=== PATIENT | female | born 1945 | race Caucasian/White ===

== ENCOUNTER 2018-06-10 02:32 | Emergency (ER) | payer MEDICARE ==
[~2018-06-10] VITALS: Ht 162.6 cm; Wt 79.5 kg
[2018-06-10 02:50] VITALS: Ht 162.6 cm; Wt 79.5 kg
[2018-06-10] MEDS ORDERED: CELEXA20 MG (02:51)
[2018-06-10] MEDS ORDERED: EC-NAPROSYN500 MG PO ×2 (02:51→12:56)
[2018-06-10] MEDS ORDERED: bp meds (02:52)
[2018-06-10] MEDS ORDERED: BAYER CHEWABLE81 MG PO (02:52)
[2018-06-10 04:44] VITALS: BP 145/68
[2018-06-10] MEDS ORDERED: ZESTRIL40 MG PO (12:54)
[2018-06-10] MEDS ORDERED: TOPROL XL50 MG PO (12:55)
[2018-06-10] MEDS ORDERED: PEPCID40 MG PO (12:55)
[2018-06-10] MEDS ORDERED: CELEXA20 MG PO (12:56)
[2018-06-10] MEDS ORDERED: ATIVAN0.5 MG PO (12:58)
[2018-06-10] MEDS ORDERED: ZANAFLEX4 MG PO (12:59)
[2018-06-14 14:49] VITALS: Ht 162.6 cm; Wt 79.5 kg
== END 2018-06-10 04:25 | disposition home or self-care (01) ==
LOC: D.ER 02:32 → EDBD 02:32 → D.ER 04:25
DX: M79.602 Pain in left arm (principal); M79.604 Pain in right leg; W19.XXXA Unspecified fall, initial encounter; Y93.9 Activity, unspecified; Y92.019 Unspecified place in single-family (private) house as the place of occurrence of the external cause

== ENCOUNTER 2018-06-10 06:55 | Inpatient (IN) | payer MEDICARE ==
[~2018-06-10] VITALS: Ht 162.6 cm; Wt 80.9 kg
--- NOTE | ~2018-06-10 | MORECARE ---
CASE MANAGEMENT DISCHARGE SUMMARY PATIENT: EFREN FABIAN UNIT: [id number] ADM DATE: 06/11/18 AGE: 73 : 45 SEX: F ROOM/BED: D.2204 AUTHOR: MISTY ROWLAND PHYSICIAN: REFERRING PHYSICIAN: ISAURA SANCHEZ MD DATE OF SERVICE: 06/12/18 Discharge Plan Patient Name: EFREN FABIAN [facility] [facility] 1945 Planned Disposition: Inpatient Rehab Anticipated Discharge Date: Discharge Date: Expected LOS: Initial Reviewer: [email or web address] Initial Review Date: 06/10/2018 Generated: 06/12/18 1:39 pm DCPIA - Discharge Planning Initial Assessment Updated by [email or web address]: Rachelle Geronimo on 06/12/18 12:38 pm * Is the patient Alert and Oriented? Yes * How many steps to enter\exit or inside your home? * PCP katrina * Pharmacy [facility] in [place] * Preadmission Environment Home Alone * ADLs Independent * Equipment Cane Elevated [place] Seat Grab Bars * List name and contact numbers for known caregivers / representatives who currently or will assist patient after discharge: Neema Vizcarra (daughter) [phone] * Verbal permission to speak to the caregivers and representatives has been obtained from the patient. Yes * Community resources currently utilized None * Additional services required to return to the preadmission environment? Yes * Can the patient safely return to the preadmission environment? No * Has this patient been hospitalized within the prior 30 days at any hospital? No Patient Name: EFREN FABIAN Page [id number] at 1239 All edits/amendments must be made on the electronic document DICTATION DATE: 06/12/18 1239 MANAGER OPERATING: AARON 06/12/18 1239 RPT#: [id number] DC DATE: STATUS: ADM IN [facility] [address] [place] [address] END OF REPORT
--- NOTE | ~2018-06-10 | MORECARE ---
CASE MANAGEMENT DISCHARGE SUMMARY PATIENT: EFREN FABIAN UNIT: [id number] ADM DATE: 06/11/18 AGE: 73 : 45 SEX: F ROOM/BED: D.2204 AUTHOR: MISTY ROWLAND PHYSICIAN: REFERRING PHYSICIAN: ISAURA SANCHEZ MD DATE OF SERVICE: 06/15/18 Discharge Plan Patient Name: EFREN FABIAN Facility: [facility]:[place] : 1945 Planned Disposition: Inpatient Rehab Anticipated Discharge Date: Discharge Date: 06/13/2018 Expected LOS: 0 Initial Reviewer: [email or web address] Initial Review Date: 06/10/2018 Generated: 06/15/18 1:32 pm Comments DCP- Discharge Planning Updated by [email or web address]: Rachelle Geronimo on 06/12/18 11:[address] Patient Name: EFREN FABIAN Admission Status: ER Accout number: [id number] Admission Date: 06-11-2018 : 1945 Admission Diagnosis: Attending: ISAURA SANCHEZ Current LOS: 1 Anticipated DC Date: Planned Disposition: Inpatient Rehab Primary Insurance: MEDICARE A & B Discharge Planning Comments: CM met with patient to assess discharge planning needs. Patient lives home alone where she is independent with her care at home. She has life alert, cane, and elevated toilet seat, grab bars in her shower. She would like a walker when she is discharge. She plans to go to [facility] inpatient rehab then she may go to her [facility] in [place] if she would not return home safely . Inpatient rehab will take her tomorrow 06/13. CM will continue to follow and assist with dc planning Roving Technician: Rachelle Geronimo DCPIA - Discharge Planning Initial Assessment Updated by [email or web address]: Rachelle Geronimo on 06/12/18 12:38 pm * Is the patient Alert and Oriented? Yes * How many steps to enter\exit or inside your home? * PCP katrina * Pharmacy [facility] in [place] * Preadmission Environment Home Alone * ADLs Independent * Equipment Cane Elevated [place] Seat Grab Bars * List name and contact numbers for known caregivers / representatives who currently or will assist patient after discharge: Neema Vizcarra (daughter) [phone] * Verbal permission to speak to the caregivers and representatives has been obtained from the patient. Yes * Community resources currently utilized None * Additional services required to return to the preadmission environment? Yes * Can the patient safely return to the preadmission environment? No * Has this patient been hospitalized within the prior 30 days at any hospital? No Last DP export: 06/12/18 11:50 Patient Name: EFREN FABIAN Page [id number] at 1232 All edits/amendments must be made on the electronic document DICTATION DATE: 06/15/18 1232 SOFTWARE ENGINEERING MANAGER: AARON 06/15/18 1232 RPT#: [id number] [place] DATE:06/13/18 STATUS: DIS IN [facility] [address] [place] [address] END OF REPORT
--- NOTE | ~2018-06-10 | MORECARE ---
CASE MANAGEMENT DISCHARGE SUMMARY PATIENT: EFREN FABIAN UNIT: [id number] ADM DATE: 06/11/18 AGE: 73 : 45 SEX: F ROOM/BED: D.2204 AUTHOR: MISTY ROWLAND PHYSICIAN: REFERRING PHYSICIAN: ISAURA SANCHEZ MD DATE OF SERVICE: 06/12/18 Discharge Plan Patient Name: EFREN FABIAN Facility: [facility]:[place] : 1945 Planned Disposition: Inpatient Rehab Anticipated Discharge Date: Discharge Date: Expected LOS: Initial Reviewer: [email or web address] Initial Review Date: 06/10/2018 Generated: 06/12/18 1:50 pm Comments DCP- Discharge Planning Updated by [email or web address]: Rachelle Geronimo on 06/12/18 11:[address] Patient Name: EFREN FABIAN Admission Status: ER Accout number: [id number] Admission Date: 06-11-2018 : 1945 Admission Diagnosis: Attending: ISAURA SANCHEZ Current LOS: 1 Anticipated DC Date: Planned Disposition: Inpatient Rehab Primary Insurance: MEDICARE A & B Discharge Planning Comments: CM met with patient to assess discharge planning needs. Patient lives home alone where she is independent with her care at home. She has life alert, cane, and elevated toilet seat, grab bars in her shower. She would like a walker when she is discharge. She plans to go to [facility] inpatient rehab then she may go to her [facility] in [place] if she would not return home safely . Inpatient rehab will take her tomorrow 06/13. CM will continue to follow and assist with dc planning Sales And Marketing Assistant: Rachelle Geronimo DCPIA - Discharge Planning Initial Assessment Updated by [email or web address]: Rachelle Geronimo on 06/12/18 12:38 pm * Is the patient Alert and Oriented? Yes * How many steps to enter\exit or inside your home? * PCP katrina * Pharmacy [facility] in [place] * Preadmission Environment Home Alone * ADLs Independent * Equipment Cane Elevated [place] Seat Grab Bars * List name and contact numbers for known caregivers / representatives who currently or will assist patient after discharge: Neema Vizcarra (daughter) [phone] * Verbal permission to speak to the caregivers and representatives has been obtained from the patient. Yes * Community resources currently utilized None * Additional services required to return to the preadmission environment? Yes * Can the patient safely return to the preadmission environment? No * Has this patient been hospitalized within the prior 30 days at any hospital? No Last DP export: 06/12/18 11:39 Patient Name: EFREN FABIAN Page [id number] at 1250 All edits/amendments must be made on the electronic document DICTATION DATE: 06/12/18 1250 SAFE DEPOSIT BOX RENTAL CLERK: AARON 06/12/18 1250 RPT#: [id number] MA DATE: STATUS: ADM IN [facility] [address] [place] [address] END OF REPORT
[~2018-06-10 06:55] MED LIST: BAYER CHEWABLE81 MG PO; CELEXA20 MG; EC-NAPROSYN500 MG PO; bp meds
[2018-06-10 08:15] LABS: BASOPHILS 0.1 % (0-2); EOSINOPHILS 0.3 % (0-7); HEMATOCRIT 39.2 % (36.0-48.0); HEMOGLOBIN 13.3 g/dL (12-16); IMMATURE GRANULOCYTES 0.3 % (0-5); LYMPHOCYTES 20.4 % (15-50); MCH 33.3 pg (26.0-34.0); MCHC 33.9 g/dL (31.0-37.0); MCV 98.2 fL (80.0-100.0); MEAN PLATELET VOLUME 12.4 fL (7.4-10.4); MONOCYTES 10.9 % (2-11); PLATELET COUNT 236 10x3/uL (130-400); RBC 3.99 10x6/uL (4.00-5.40); WBC 7.6 10x3/uL (4.8-10.8)
[2018-06-10 08:30] LABS: ALBUMIN 3.7 g/dL (3.4-5.0); ALKALINE PHOSPHATASE 99 U/L (46-116); ALT (SGPT) 22 U/L (10-68); CALC OSMOLALITY 281 mosm/kg (275-300); CALCIUM 8.6 mg/dL (8.5-10.1); CHLORIDE - SERUM 102 mmol/L (98-107); GLUCOSE 109 mg/dL (74-106); POTASSIUM - SERUM 4.2 mmol/L (3.5-5.1); SODIUM 140 mmol/L (136-145); UREA NITROGEN 17 mg/dL (7-18); eGFR NON AFRICAN AMERICAN 58 mL/min (90-120)
[2018-06-10 08:41] LABS: CKMB 0.4 U/L (0.0-3.6); CREATINE KINASE 124 UL (21-215)
[2018-06-10 08:45] LABS: TROPONIN-I < 0.017 ng/mL (0.000-0.060)
[2018-06-10 08:47] LABS: APPEARANCE CLOUDY (CLEAR); BILIRUBIN NEGATIVE (NEGATIVE); COLOR YELLOW (YELLOW); GLUCOSE NEGATIVE (NEGATIVE); KETONE NEGATIVE (NEGATIVE); NITRITE NEGATIVE (NEGATIVE); PROTEIN TRACE mg/dL (NEGATIVE); UROBILINOGEN NORMAL (NORMAL)
[2018-06-10 08:48] LABS: WHITE CELLS - URINE 0-5 /hpf (0-5)
[2018-06-10 08:49] LABS: AMORPHOUS SEDIMENT <1+ /lpf (NONE SEEN); BACTERIA MODERATE /hpf (NONE SEEN); EPITHELIAL CELLS OCC /hpf (0-5); MUCUS <1+ /lpf (NONE SEEN)
[2018-06-10] MEDS ORDERED: ZESTRIL40 MG PO (12:54)
[2018-06-10] MEDS ORDERED: TOPROL XL50 MG PO (12:55)
[2018-06-10] MEDS ORDERED: PEPCID40 MG PO (12:55)
[2018-06-10] MEDS ORDERED: EC-NAPROSYN500 MG PO (12:56)
[2018-06-10] MEDS ORDERED: CELEXA20 MG PO (12:56)
[2018-06-10] MEDS ORDERED: ATIVAN0.5 MG PO (12:58)
[2018-06-10] MEDS ORDERED: ZANAFLEX4 MG PO (12:59)
[2018-06-10 16:13] VITALS: BP 114/54; Ht 162.6 cm; Wt 80.9 kg
[2018-06-10 20:00] VITALS: BP 102/52
[2018-06-11] VITALS: BP 104/49
[2018-06-11 04:02] VITALS: BP 103/56
[2018-06-11 06:06] LABS: ANION GAP 10.7 mmol/L (8-16); BILIRUBIN - TOTAL 0.9 mg/dL (0.2-1.3); CALCIUM 7.8 mg/dL (8.5-10.1); CARBON DIOXIDE 25.1 mmol/L (21.0-32.0); CREATININE - SERUM 0.8 mg/dL (0.6-1.3); POTASSIUM - SERUM 3.8 mmol/L (3.5-5.1); PROTEIN - SERUM 5.6 g/dL (6.4-8.2)
[2018-06-11 06:07] LABS: ALBUMIN 2.6 g/dL (3.4-5.0)
[2018-06-11 09:03] VITALS: BP 112/92
[2018-06-11 09:53] LABS: BASOPHILS 0.2 % (0-2); EOSINOPHILS 1.8 % (0-7); HEMATOCRIT 35.4 % (36.0-48.0); HEMOGLOBIN 11.4 g/dL (12-16); IMMATURE GRANULOCYTES 0.2 % (0-5); LYMPHOCYTES 21.7 % (15-50); MCH 32.8 pg (26.0-34.0); MCHC 32.2 g/dL (31.0-37.0); MEAN PLATELET VOLUME 11.5 fL (7.4-10.4); MONOCYTES 11.5 % (2-11); NEUTROPHILS 64.6 % (40-80); RBC 3.48 10x6/uL (4.00-5.40); RDW 12.8 % (11.5-14.5)
[2018-06-11 09:59] LABS: PLATELET COUNT 106 10x3/uL (130-400); WBC 5.5 10x3/uL (4.8-10.8)
[2018-06-11 10:01] LABS: MCV 101.7 fL (80.0-100.0)
[2018-06-11 12:30] VITALS: BP 142/108
[2018-06-11 17:15] VITALS: BP 142/66
[2018-06-11 20:00] VITALS: BP 149/63
[2018-06-12 04:00] VITALS: BP 179/67
[2018-06-12 05:07] LABS: BASOPHILS 0.4 % (0-2); EOSINOPHILS 2.4 % (0-7); HEMATOCRIT 37.3 % (36.0-48.0); HEMOGLOBIN 12.2 g/dL (12-16); IMMATURE GRANULOCYTES 0.4 % (0-5); LYMPHOCYTES 24.1 % (15-50); MCH 32.6 pg (26.0-34.0); MCHC 32.7 g/dL (31.0-37.0); MEAN PLATELET VOLUME 11.1 fL (7.4-10.4); MONOCYTES 13.3 % (2-11); NEUTROPHILS 59.4 % (40-80); PLATELET COUNT 112 10x3/uL (130-400); RBC 3.74 10x6/uL (4.00-5.40); RDW 12.3 % (11.5-14.5); WBC 5.3 10x3/uL (4.8-10.8)
[2018-06-12 05:17] LABS: MCV 99.7 fL (80.0-100.0)
[2018-06-12 05:36] LABS: ANION GAP 13.4 mmol/L (8-16); CALCIUM 8.3 mg/dL (8.5-10.1); CARBON DIOXIDE 28.3 mmol/L (21.0-32.0); CREATININE - SERUM 0.8 mg/dL (0.6-1.3); POTASSIUM - SERUM 3.7 mmol/L (3.5-5.1)
[2018-06-12 08:25] VITALS: BP 171/74
[2018-06-12 11:30] VITALS: BP 140/74
[2018-06-12 16:00] VITALS: BP 145/65
[2018-06-12 19:40] VITALS: BP 172/77
[2018-06-13] VITALS: BP 150/63
[2018-06-13 06:11] LABS: BASOPHILS 0.5 % (0-2); EOSINOPHILS 1.9 % (0-7); HEMATOCRIT 35.5 % (36.0-48.0); HEMOGLOBIN 11.8 g/dL (12-16); IMMATURE GRANULOCYTES 0.5 % (0-5); LYMPHOCYTES 27.9 % (15-50); MCHC 33.2 g/dL (31.0-37.0); MCV 99.2 fL (80.0-100.0); MEAN PLATELET VOLUME 11.3 fL (7.4-10.4); MONOCYTES 13.4 % (2-11); NEUTROPHILS 55.8 % (40-80); PLATELET COUNT 125 10x3/uL (130-400); RBC 3.58 10x6/uL (4.00-5.40); RDW 12.5 % (11.5-14.5); WBC 5.7 10x3/uL (4.8-10.8)
[2018-06-13 06:35] VITALS: BP 147/67
[2018-06-13 06:37] LABS: ANION GAP 13.7 mmol/L (8-16); CALCIUM 8.7 mg/dL (8.5-10.1); CREATININE - SERUM 0.8 mg/dL (0.6-1.3); POTASSIUM - SERUM 3.7 mmol/L (3.5-5.1)
[2018-06-13 08:42] VITALS: BP 147/76
[2018-06-13] MEDS ORDERED: COLACE100 MG PO (10:07)
[2018-06-13] MEDS ORDERED: IBUPROFEN400 MG PO (10:07)
[2018-06-13] MEDS ORDERED: FLORAJEN3 CAPS460 MG PO (10:07)
[2018-06-13] MEDS ORDERED: HYDROCODON-ACE1 EAC7 PO (10:07)
[2018-06-13] MEDS ORDERED: PROTONIX VL + NS SYR IV (10:08)
[2018-06-13] MEDS ORDERED: ONDANSETRON4 MG/2 M3 IV (10:08)
[2018-06-13] MEDS ORDERED: MIRALAX17 GM PO (10:08)
[2018-06-13] MEDS ORDERED: MONODOX100 MG IVPB (10:11)
[2018-06-13] MEDS ORDERED: EC-NAPROSYN500 MG PO (10:34)
[2018-06-13 11:55] VITALS: BP 147/70
== END 2018-06-13 12:00 | DRG 690 ==
LOC: EDBD 06:55 → D.ER 06:55 → OBSVTIME 09:24 → D.EDHOLD 09:24 → D.MS 09:24
PROVIDERS: Family Medicine; Internal Medicine Nephrology
DX: N39.0 Urinary tract infection, site not specified (principal); B95.7 Other staphylococcus as the cause of diseases classified elsewhere; M25.512 Pain in left shoulder; W19.XXXA Unspecified fall, initial encounter; M54.10 Radiculopathy, site unspecified; I10 Essential (primary) hypertension; M79.604 Pain in right leg

== ENCOUNTER 2018-06-13 12:10 | Inpatient (IN) | payer MEDICARE ==
[~2018-06-13] VITALS: Ht 162.6 cm; Wt 79.4 kg
--- NOTE | ~2018-06-13 | RHP ---
PATIENT: EFREN FABIAN MEDICAL RECORD: [id number] ACCOUNT: [id number] LOCATION:[facility] : [birth year] ADMISSION DATE: 06/13/18 REHABILITATION HISTORY AND PHYSICAL EXAMINATION POST ADMISSION PHYSICIAN EXAMINATION DATE OF ADMISSION: 06/13/2018 ADMITTING DIAGNOSIS: Disuse myopathy. HISTORY OF PRESENT ILLNESS: The patient is admitted to inpatient rehab with disuse myopathy. She is a 73-year-old female patient, who presented to Emergency Room after several falls. She had an acute hospital admit on 06/10/2018. She has got a history of hypertension, cholecystectomy, knee replacement and hysterectomy. She was recently attempting to get out of her car and she fell on the door with both legs giving out on her and unable to bear weight. She was also ambulating in her home and fell forward in her bathroom after ambulating short distance, stating her legs just kept giving out. She complained of left shoulder pain, back pain and right thigh pain upon admission. She has an orthopedic surgery consult during her stay for workup. She had noted degenerative changes in the lumbar spine without any signs of spinal stenosis. She did have a mildly comminuted nondisplaced fracture of her humeral head. She had noted tendinitis of her supraspinatus and infraspinatus tendons, but no tear. 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 She was also found to have UTI with gram-positive cocci. She has been receiving IV antibiotic therapy. She has proximal muscle weakness with difficulty rising from bed to chair. She is on supplemental O2 at this time. She is also on IV antibiotics for UTI. She has got impaired mobility, weakness, frequent falls and self-care deficit. These are all barriers to her discharge. She and her daughter live in the [place] area, plan for her to regain her strength and her ability to live at home alone after inpatient rehab stay and possibly get home health or outpatient therapy to set up so that she can regain her strength and hopefully get back to her prior level of functioning. She may discharge home with her daughter to [place] if not able to stay at home alone after acute inpatient rehab stay. COMORBIDITIES: In this patient include UTI, diabetes, musculoskeletal pain, frequent falls, left shoulder pain. She has got a subacromial and subdeltoid bursitis noted. PAST MEDICAL HISTORY: Significant for hypertension, Ixdlq-Bcznvnqks-Qpsjg, gallbladder problems in the past, degenerative changes in her knees, back and spinal pain, urinary incontinence, arthritis, osteoporosis and anxiety. PAST SURGICAL HISTORY: Includes gallbladder removal, hysterectomy. She has had a right total knee and she has also had some metal plates placed in her left upper extremity secondary to a fall. ALLERGIES: PENICILLIN AND CODEINE. CURRENT MEDICATIONS: Include doxycycline, she was on 100 mg IV b.i.d. for a total of 7 days' worth, I am going to go and change her over to p.o.; Protonix 40 mg daily; lactobacillus 1 tab daily; metoprolol 50 mg daily; lisinopril 40 mg daily; citalopram 20 mg daily; aspirin chewable 81 mg daily; Zanaflex 4 mg every 8 hours p.r.n. She is on Zofran p.r.n. nausea and vomiting, Ativan 0.5 mg HISTORY AND PHYSICAL [id number] EFREN FABIAN.i.dGabriela p.r.n. anxiety; Motrin 400 mg every 4 hours p.r.n.; [place] 5/325 one tab every 4 hours p.r.n.; Colace 100 mg b.i.d., and MiraLax 17 grams in 8 ounces of water daily. HABITS: No alcohol or tobacco use. FAMILY HISTORY: Noncontributory. SOCIAL HISTORY: As above. Hopefully, the patient will be able to return home. If not, she will return back [place] with her daughter. REVIEW OF SYSTEMS: GENERAL: Does complain of some weakness or fatigue. HEENT: Denies cold, cough, or congestion. CARDIOVASCULAR: Denies chest pain. PHYSICAL EXAMINATION: VITAL SIGNS: Stable, afebrile. GENERAL: A well-developed female in no acute distress, alert upon exam. HEENT: Normocephalic and atraumatic. Mucosa moist. NECK: Supple. No lymphadenopathy. LUNGS: Clear at this time with no wheeze, rhonchi or rales. HEART: Regular rate and rhythm. No murmurs, rubs or gallops. ABDOMEN: Benign. No rebound, no guarding. EXTREMITIES: She does have some noted bruising and changes to her extremities. NEUROLOGIC: She does have noted proximal muscle weakness. LABORATORY DATA: White count is 5.7, H&H 12 and 35, and platelet count is 125. Her sodium is 144, potassium 3.7, BUN and creatinine of 12 and 0.8 and blood sugar was noted to be 101. Her admit UA did show still some 1+ leukocyte esterase and moderate bacteria. ASSESSMENT: This is a 73-year-old female patient admitted to rehab with a working diagnosis of disuse myopathy. The patient has potential to make improvement. We instituted the following multidisciplinary therapies include, but not limited to physical, occupational, respiratory, speech, nutritional services, prosthetics and orthotics. Given her complex medical condition and risk for more complications, rehabilitation services cannot be provided at a low level of care such as skilled nurse facility. PLAN: 1. Admit to [facility] rehab for intensive inpatient therapy to include the following disciplines: A. Physical therapy to improve gait, all transfer skills and bed mobility to a modified independent level. B. Occupational therapy to a modified independent level. C. Case management to assist with discharge planning and placement options. D. Nutrition to assist with nutritional needs. E. Rehabilitation nursing to assist in monitoring the patient's underlying medical condition and to assist with any type of bowel or bladder management. 2. The patient's current medication and medical care will be continued. 3. We are going to continue on doxycycline for her UTI. 4. I am going to follow up with care team and the director case today at noon. TRANSINT:[id number] Voice Confirmation ID: [id number] DOCUMENT ID: [id number] HISTORY AND PHYSICAL [id number] EFREN FABIAN 06/19/18 Edited for donna PADRON. NEREIDA notes whether there has been none or any medical/functional change since admission: - No change since preadmission screen. NEREIDA attests patient continues to be appropriate for IRF: - Continues to be appropriate. ANGI UMAÑA MD CC: [id number] DICTATION DATE: 06/14/18 1032 LAW SECRETARY: 06/14/18 1310 ADM IN [facility] [address] [place] [address]
[~2018-06-13 12:10] MED LIST changes: +ATIVAN0.5 MG PO; +CELEXA20 MG PO; +COLACE100 MG PO; +FLORAJEN3 CAPS460 MG PO; +HYDROCODON-ACE1 EAC7 PO; +IBUPROFEN400 MG PO; +MIRALAX17 GM PO; +MONODOX100 MG IVPB; +ONDANSETRON4 MG/2 M3 IV; +PEPCID40 MG PO; +PROTONIX VL + NS SYR IV; +TOPROL XL50 MG PO; +ZANAFLEX4 MG PO; +ZESTRIL40 MG PO
[2018-06-13 12:31] VITALS: BP 178/75; BMI 30.1
[2018-06-13 19:40] VITALS: BP 158/70
[2018-06-14 08:00] VITALS: BP 150/82
[2018-06-14 14:49] VITALS: Ht 162.6 cm; Wt 79.4 kg
[2018-06-14 20:10] VITALS: BP 152/60
[2018-06-15 08:00] VITALS: BP 183/76
[2018-06-15 19:00] VITALS: BP 133/55
[2018-06-16 07:20] LABS: BASOPHILS 0.5 % (0-2); EOSINOPHILS 2.1 % (0-7); HEMATOCRIT 34.4 % (36.0-48.0); HEMOGLOBIN 11.4 g/dL (12-16); IMMATURE GRANULOCYTES 0.4 % (0-5); LYMPHOCYTES 31.8 % (15-50); MCH 33.1 pg (26.0-34.0); MCHC 33.1 g/dL (31.0-37.0); MEAN PLATELET VOLUME 10.9 fL (7.4-10.4); NEUTROPHILS 54.2 % (40-80); RBC 3.44 10x6/uL (4.00-5.40); RDW 12.9 % (11.5-14.5); WBC 5.7 10x3/uL (4.8-10.8)
[2018-06-16 07:25] LABS: PLATELET COUNT 151 10x3/uL (130-400)
[2018-06-16 07:33] LABS: ANION GAP 11.6 mmol/L (8-16); CALCIUM 8.6 mg/dL (8.5-10.1); CARBON DIOXIDE 29.3 mmol/L (21.0-32.0); CREATININE - SERUM 0.9 mg/dL (0.6-1.3); POTASSIUM - SERUM 3.9 mmol/L (3.5-5.1)
[2018-06-16 08:00] VITALS: BP 155/65
[2018-06-16 18:45] VITALS: BP 172/67
[2018-06-17 08:00] VITALS: BP 150/69
[2018-06-17 19:30] VITALS: BP 151/67
[2018-06-18 08:00] VITALS: BP 156/55
[2018-06-18 19:30] VITALS: BP 176/55
[2018-06-19 06:04] LABS: BASOPHILS 0.6 % (0-2); EOSINOPHILS 1.7 % (0-7); HEMATOCRIT 36.1 % (36.0-48.0); HEMOGLOBIN 11.9 g/dL (12-16); IMMATURE GRANULOCYTES 0.5 % (0-5); LYMPHOCYTES 32.4 % (15-50); MCH 33.1 pg (26.0-34.0); MCV 100.3 fL (80.0-100.0); MEAN PLATELET VOLUME 10.9 fL (7.4-10.4); MONOCYTES 11.3 % (2-11); NEUTROPHILS 53.5 % (40-80); PLATELET COUNT 206 10x3/uL (130-400); RDW 12.8 % (11.5-14.5); WBC 6.6 10x3/uL (4.8-10.8)
[2018-06-19 06:20] LABS: ANION GAP 13.1 mmol/L (8-16); CALCIUM 8.9 mg/dL (8.5-10.1); CARBON DIOXIDE 28.8 mmol/L (21.0-32.0); CREATININE - SERUM 0.8 mg/dL (0.6-1.3); POTASSIUM - SERUM 3.9 mmol/L (3.5-5.1)
[2018-06-19 08:22] VITALS: BP 126/47
[2018-06-19 19:48] VITALS: BP 142/78
[2018-06-20 07:09] LABS: BASOPHILS 0.7 % (0-2); EOSINOPHILS 1.6 % (0-7); HEMATOCRIT 37.2 % (36.0-48.0); HEMOGLOBIN 12.1 g/dL (12-16); IMMATURE GRANULOCYTES 0.9 % (0-5); LYMPHOCYTES 38.4 % (15-50); MCH 32.8 pg (26.0-34.0); MCHC 32.5 g/dL (31.0-37.0); MCV 100.8 fL (80.0-100.0); MEAN PLATELET VOLUME 10.8 fL (7.4-10.4); NEUTROPHILS 47.4 % (40-80); PLATELET COUNT 229 10x3/uL (130-400); RBC 3.69 10x6/uL (4.00-5.40); RDW 12.9 % (11.5-14.5); WBC 6.7 10x3/uL (4.8-10.8)
[2018-06-20 07:16] LABS: ANION GAP 12.5 mmol/L (8-16); CARBON DIOXIDE 29.2 mmol/L (21.0-32.0); CREATININE - SERUM 0.8 mg/dL (0.6-1.3); POTASSIUM - SERUM 3.7 mmol/L (3.5-5.1)
[2018-06-20 08:00] VITALS: BP 159/69
[2018-06-20 19:00] VITALS: BP 156/55
[2018-06-21 08:00] VITALS: BP 104/38
[2018-06-21 20:00] VITALS: BP 130/45
[2018-06-22 08:00] VITALS: BP 108/37
[2018-06-22] MEDS ORDERED: HYDROCODON-ACE1 EAC7 PO (08:56)
== END 2018-06-22 12:04 | disposition home or self-care (01) | DRG 92 ==
LOC: D.REHAB 12:10
PROVIDERS: ADMIT Emergency Medicine
DX: G72.89 Other specified myopathies (principal); N39.0 Urinary tract infection, site not specified; M79.18 Myalgia, other site; Z91.81 History of falling; M25.512 Pain in left shoulder; M75.50 Bursitis of unspecified shoulder; I10 Essential (primary) hypertension; E11.65 Type 2 diabetes mellitus with hyperglycemia; M79.604 Pain in right leg